=== PATIENT | male | born 1980 | race African-American/Black ===

== ENCOUNTER 2017-11-02 08:05 | Emergency (ER) | payer OTHER ==
[~2017-11-02] VITALS: Ht 167.6 cm; Wt 78.9 kg
[~2017-11-02 08:05] MED LIST: AUGMENTIN875 MG PO; CLEOCIN300 MG PO; HABITROL,NICODE21 MG TD; HUMULIN 70100 UNIT/3 SC; HUMULIN R100 UNITS/ SC; INSULIN 70/30; LANTUS 3 M100 UNITS1 SC; LORTAB 5-325 M1 EACH PO; NAPROSYN500 MG PO; NOVOLIN,HU100 UNITS/ SC; NOVOLOG PE100 UNITS/ SC; ONDANSETRON HCL4 MG PO; PROMETHAZINE HC25 M1 PO
[2017-11-02 08:39] LABS: HEMATOCRIT 45.8 % (38.0-50.0); HEMOGLOBIN 15.7 G/DL (12.5-16.6); MCH 30.4 PG (29.0-34.0); MCHC 34.3 G/DL (30.0-36.0); MCV 88.6 FL (86-99); PLATELET COUNT 183 K/uL (156-360); RBC DIS.WIDTH-CV 11.6 % (11.8-14.6); RBC DIS.WIDTH-SD 37.5 % (39-53); RED BLOOD COUNT 5.17 M/uL (4.00-5.50); WHITE BLOOD COUNT 6.1 K/uL (4.1-10.2)
[2017-11-02 09:08] LABS: ALBUMIN 4.8 G/DL (3.2-4.8); CHLORIDE 93 MEQ/L (99-109); POTASSIUM 4.7 MEQ/L (3.7-5.4); SODIUM 138 MEQ/L (136-147); TOTAL BILIRUBIN 1.2 MG/DL (0.0-1.0)
[2017-11-02 09:14] LABS: ALKALINE PHOSPHATASE 72 IU/L (3-129); ALT (GPT) 28 IU/L (3-49); AST (GOT) 23 IU/L (2-34); CREATININE 1.1 MG/DL (0.6-1.3); GFR ESTIMATE (CALCULATED) > 59 mL/min/ (58.99-99999); GLUCOSE 386 mg/dL (70-99); TOTAL PROTEIN 7.9 G/DL (6.4-8.3); UREA NITROGEN (BUN) 23 mg/dL (9-23)
[2017-11-02 09:48] LABS: APPEARANCE CLEAR ((CLEAR)); BILIRUBIN NEGATIVE; BLOOD NEGATIVE; COLOR YELLOW ((YELLOW)); GLUCOSE (STRIP) >=500; KETONES 80; LEUKOCYTES NEGATIVE; NITRITE NEGATIVE; PROTEIN (STRIP) 30; SPECIFIC GRAVITY 1.045 (1.000-1.030); UCUL ADDED? NO; UROBILINOGEN 0.2 MG/DL (0.2-1.0)
[2017-11-02 10:32] LABS: BASE EXCESS 0.1 mEq/L (-3 to +3); BICARBONATE 24.7 mEq/L (22-26); CARBOXY HGB 2.2 % (0-5)
[2017-11-02 10:34] LABS: COMMENTS - BLOOD GASES A+C+; DEVICE RA; PCO2 39 mm Hg (35-45); PO2 72 mm Hg (80-100); SITE RR; TOTAL RESP RATE 15 resp/min; pH 7.41 (7.35-7.45)
[2017-11-02 12:14] LABS: CHLORIDE 101 mEq/L (99-109); POTASSIUM 4.4 mEq/L (3.7-5.4); SODIUM 137 mEq/L (136-147)
[2017-11-02 12:16] LABS: GLUCOSE 366 mg/dL (70-99)
[2017-11-02 12:20] LABS: CREATININE 1.1 mg/dL (0.6-1.3); GFR ESTIMATE (CALCULATED) > 59 mL/min/ (58.99-99999); UREA NITROGEN (BUN) 22 mg/dL (9-23)
[2017-11-02 13:41] VITALS: BP 128/66
[2017-11-03] MEDS ORDERED: METHADONE10 MG/1 M1 PO (07:19)
== END 2017-11-02 13:44 | disposition home or self-care (01) ==
LOC: EME 08:05
PROVIDERS: Emergency Medicine
DX: E11.65 Type 2 diabetes mellitus with hyperglycemia (principal); E86.0 Dehydration; R11.2 Nausea with vomiting, unspecified; Z79.4 Long term (current) use of insulin; F17.200 Nicotine dependence, unspecified, uncomplicated
CPT/HCPCS: 36600; 80048 91; 80053; 81003; 82803; 82948; 83605; 85027; 99281; 99285; J2060; J2405; J2765; J7030

== ENCOUNTER 2017-11-03 06:56 | Inpatient (IN) | payer OTHER ==
[~2017-11-03] VITALS: Ht 167.6 cm; Wt 78.5 kg
[2017-11-03] MEDS ORDERED: METHADONE10 MG/1 M1 PO (07:19)
[2017-11-03 07:53] LABS: CARBON DIOXIDE (BICARBONATE) 26.7 MEQ/L (20-31); HEMATOCRIT 44.1 % (38.0-50.0); MCH 30.3 PG (29.0-34.0); MCV 89.1 FL (86-99); PLATELET COUNT 163 K/uL (156-360); RBC DIS.WIDTH-CV 11.6 % (11.8-14.6); RBC DIS.WIDTH-SD 37.6 % (39-53); RED BLOOD COUNT 4.95 M/uL (4.00-5.50); WHITE BLOOD COUNT 8.1 K/uL (4.1-10.2)
[2017-11-03 08:04] LABS: CHLORIDE 96 mEq/L (99-109); POTASSIUM 4.9 mEq/L (3.7-5.4); SODIUM 137 mEq/L (136-147)
[2017-11-03 08:09] LABS: CREATININE 1.4 mg/dL (0.6-1.3); GFR ESTIMATE (CALCULATED) > 59 mL/min/ (58.99-99999); GLUCOSE 486 mg/dL (70-99)
[2017-11-03 08:10] LABS: UREA NITROGEN (BUN) 31 mg/dL (9-23)
[2017-11-03 08:41] LABS: ALBUMIN 4.3 g/dL (3.2-4.8)
[2017-11-03 08:44] LABS: TOTAL PROTEIN 7.5 g/dL (6.4-8.3)
[2017-11-03 08:45] LABS: TOTAL BILIRUBIN 1.4 mg/dL (0.0-1.0)
[2017-11-03 08:46] LABS: ALKALINE PHOSPHATASE 70 IU/L (3-129)
[2017-11-03 08:49] LABS: AST (GOT) 28 IU/L (2-34); DIRECT BILIRUBIN 0.4 mg/dL (0.0-0.3)
[2017-11-03 08:50] LABS: ALT (GPT) 30 IU/L (3-49); LIPASE 9 U/L (1.0-51.0)
[2017-11-03 10:05] LABS: APPEARANCE CLEAR ((CLEAR)); BILIRUBIN NEGATIVE; BLOOD NEGATIVE; COLOR YELLOW ((YELLOW)); GLUCOSE (STRIP) >=500; KETONES 80; LEUKOCYTES NEGATIVE; NITRITE NEGATIVE; PROTEIN (STRIP) NEGATIVE; UROBILINOGEN 0.2 MG/DL (0.2-1.0)
[2017-11-03 10:23] LABS: SPECIFIC GRAVITY 1.052 (1.000-1.030)
[2017-11-03 12:04] LABS: CHLORIDE 101 mEq/L (99-109); POTASSIUM 4.6 mEq/L (3.7-5.4); SODIUM 138 mEq/L (136-147)
[2017-11-03 12:06] LABS: GLUCOSE 328 mg/dL (70-99)
[2017-11-03 12:10] LABS: CREATININE 1.1 mg/dL (0.6-1.3); GFR ESTIMATE (CALCULATED) > 59 mL/min/ (58.99-99999)
[2017-11-03 12:11] LABS: UREA NITROGEN (BUN) 30 mg/dL (9-23)
[2017-11-03 15:12] VITALS: BP 118/74
[2017-11-03 23:33] VITALS: BP 129/69
[2017-11-04 07:13] VITALS: BP 131/78
[2017-11-04 07:38] LABS: MCHC 33.4 G/DL (30.0-36.0); MCV 89.6 FL (86-99); PLATELET COUNT 138 K/uL (156-360); RBC DIS.WIDTH-CV 11.6 % (11.8-14.6); RED BLOOD COUNT 4.24 M/uL (4.00-5.50); WHITE BLOOD COUNT 10.4 K/uL (4.1-10.2)
[2017-11-04 07:41] LABS: HEMOGLOBIN 12.7 G/DL (12.5-16.6)
[2017-11-04 07:48] LABS: CHLORIDE 102 MEQ/L (99-109); CREATININE 0.9 MG/DL (0.6-1.3); GFR ESTIMATE (CALCULATED) > 59 mL/min/ (58.99-99999); GLUCOSE 255 mg/dL (70-99); POTASSIUM 3.8 MEQ/L (3.7-5.4); SODIUM 137 MEQ/L (136-147); UREA NITROGEN (BUN) 17 mg/dL (9-23)
[2017-11-04 17:07] VITALS: BP 139/86
[2017-11-05 01:11] VITALS: BP 159/91
[2017-11-05 05:03] VITALS: BP 113/74
[2017-11-05 08:00] VITALS: BP 174/97
[2017-11-05 16:00] VITALS: BP 143/92
[2017-11-05] MEDS ORDERED: ZOFRAN4 MG PO (16:38)
[2017-11-05] MEDS ORDERED: DICYCLOMINE HCL10 MG PO (16:38)
[2017-11-05] MEDS ORDERED: NICOTINE PATCH1 EAC2 TD (16:40)
[2017-11-05] MEDS ORDERED: PRILOSEC OTC20 MG PO (16:40)
== END 2017-11-05 17:50 | disposition home or self-care (01) | DRG 74 ==
LOC: EME 06:56 → EDOF 12:44 → ENRESERV 12:53 → EDOF 12:59 → ENRESERV 13:16 → 5SOUTH 14:40
PROVIDERS: Internal Medicine; Internal Medicine Gastroenterology; Nurse Practitioner Family
DX: E10.43 Type 1 diabetes mellitus with diabetic autonomic (poly)neuropathy (principal); N17.9 Acute kidney failure, unspecified; K31.84 Gastroparesis; E10.65 Type 1 diabetes mellitus with hyperglycemia; E86.0 Dehydration; F17.210 Nicotine dependence, cigarettes, uncomplicated; F11.20 Opioid dependence, uncomplicated; Z79.4 Long term (current) use of insulin
CPT/HCPCS: 36600; 71010; 71020; 74177; 80048; 80048 91; 80053; 80076; 81003; 82010; 82803; 82948; 83605; 83690; 85027; 87502; 99281; 99285; C9113; J1200; J1650; J1815; J1885; J2060; J2405; J2765; J7030

== ENCOUNTER 2018-03-04 17:02 | Emergency (ER) | payer OTHER ==
[~2018-03-04] VITALS: Ht 167.6 cm; Wt 86.4 kg
[~2018-03-04 17:02] MED LIST changes: +DICYCLOMINE HCL10 MG PO; +METHADONE10 MG/1 M1 PO; +NICOTINE PATCH1 EAC2 TD; +PRILOSEC OTC20 MG PO; +ZOFRAN4 MG PO
[2018-03-04 17:08] VITALS: BP 111/70
== END 2018-03-04 17:27 | disposition left against medical advice (07) ==
LOC: EME 17:02
DX: S99.921A Unspecified injury of right foot, initial encounter (principal); Z53.21 Procedure and treatment not carried out due to patient leaving prior to being seen by health care provider